=== PATIENT | female | born 2000 | race Caucasian/White ===

== ENCOUNTER 2018-05-01 19:29 | Emergency (ER) | payer BC ==
--- OUTSIDE RECORDS SUMMARY | 2018-05-01 19:58 | XMS REPORT | Continuity of Care Document ---
:1998 External Reference #:[id number] Author Name ANA Shaffer Address [address] [place] [address] Care Team Providers Name Role Phone Danii Briceño M.D. Primary Care Physician Unavailable Payers Date Identification Numbers Payment Provider Subscriber Effective: 2012 Policy Number: [id number] [place] Melania Reardon PayID: [id number] [address] [address] [place] [address] Advance Directives Description No Information Available Problems Date Description Provider Status Onset: 05/27/2015 Toxic effect of venom of hornets, JOSEPH Walker Active accidental (unintentional), subsequent encounter Onset: 05/27/2015 Body mass index (BMI) pediatric, 5th RIO Walker Active percentile to less than 85th percentile for age Family History Date Family Member(s) Observation Comments General Thyroid Disease Father Thyroid Disease Social History Type Date Description Comments Sex Unknown Lives With Parents Home Environment 20+Year Old Home, 2 Years In Current Home Home Environment Does not use air concrete pourer Home Environment Has a window air conditioner Home Environment Cotton Comforter Home Environment Mattress is not encased in an allergy proof case Home Environment Regular Mattress Home Environment Pillows are not encased in an allergy proof case Home Environment Pillows are polyester Home Environment Uses a dehumidifier Home Environment The basement is damp and dehumidifier used Home Environment There are no draperies in the home Home Environment The home is not selvin Home Environment The floors are carpeted Home Environment The floors are tile Home Environment The floors are wood Home Environment Uses forced air heating Home Environment [place] Home Environment Water Source: [facility] Smoke-Free Home is smoke-free Smoke-Free Work is smoke-free Pets 2 cats Pets 1 dog 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 ETOH Use Denies alcohol use Tobacco Use Start: Unknown Patient has never smoked Recreational Drug Use Denies Drug Use Allergies, Adverse Reactions, Alerts Date Description Reaction Status Severity Comments 03/20/2013 Bee Stings Active Medications Medication Date Status Form Strength Qnty SIG Indications Ordering Provider Epipen 2-Ion Active Solution 0.3mg/0.3M 1units use as Veronica 012 Auto-Injec gauri Cates for a [employer]NAGER [employer] severe allergic reaction Multi-Vitamin Active Chewtabs 1mg Zarzecki, /Fluoride 000 Maulik Williamson Medications Administered in Office Medication Date Status Form Strength Qnty SIG Indications Ordering Provider Injection 04/18/19 Administered Injection Allergy 19 Injection Injection 03/21/19 Administered Injection Allergy 19 Injection Injection 02/21/19 Administered Injection Allergy 19 Injection Injection 01/23/20 Administered Injection Allergy 18 Injection Injection 12/26/19 Administered Injection Allergy 18 Injection Injection 11/28/19 Administered Injection Allergy 18 Injection Injection 10/17/19 Administered Injection Allergy 18 Injection Injection 09/21/19 Administered Injection Allergy 18 Injection Injection 08/24/19 Administered Injection Allergy 18 Injection Injection 07/27/19 Administered Injection Allergy 18 Injection Injection 06/29/19 Administered Injection Allergy 18 Injection Injection 06/01/19 Administered Injection Allergy 18 Injection Injection 05/04/19 Administered Injection Allergy 18 Injection Injection 03/08/19 Administered Injection Allergy 18 Injection Injection 02/01/20 Administered Injection Allergy 17 Injection Injection 12/19/19 Administered Injection Allergy 17 Injection Injection 12/05/19 Administered Injection Allergy 17 Injection Injection 11/21/19 Administered Injection Allergy 17 Injection Injection 11/14/19 Administered Injection Allergy 17 Injection Injection 10/04/19 Administered Injection Allergy 17 Injection Injection 09/15/19 Administered Injection Allergy 17 Injection Injection 08/25/19 Administered Injection Allergy 17 Injection Injection 06/21/19 Administered Injection Rupali Avalos M.D. Injection 06/21/19 Administered Injection Allergy 17 Injection Injection 05/10/19 Administered Injection Allergy 17 Injection Injection 03/16/19 Administered Injection Allergy 17 Injection Injection 02/17/20 Administered Injection Allergy 16 Injection Injection 01/20/20 Administered Injection Allergy 16 Injection Injection 12/21/19 Administered Injection Allergy 16 Injection Injection 12/09/19 Administered Injection Allergy 16 Injection Injection 10/12/19 Administered Injection Allergy 16 Injection Injection 09/14/19 Administered Injection Allergy 16 Injection Injection 08/17/19 Administered Injection Allergy 16 Injection Injection 07/22/19 Administered Injection Allergy 16 Injection Injection 06/29/19 Administered Injection Allergy 16 Injection Injection 05/27/19 Administered Injection Allergy 16 Injection Injection 04/29/19 Administered Injection Allergy 16 Injection Injection 04/01/19 Administered Injection Allergy 16 Injection Injection 03/02/19 Administered Injection Allergy 16 Injection Injection 02/03/20 Administered Injection Allergy 15 Injection Injection 01/06/20 Administered Injection Allergy 15 Injection Injection 12/09/19 Administered Injection Allergy 15 Injection Injection 11/11/19 Administered Injection Allergy 15 Injection Injection 10/28/19 Administered Injection Allergy 15 Injection Injection 10/16/19 Administered Injection Allergy 15 Injection Injection 10/06/19 Administered Injection Allergy 15 Injection Injection 09/18/19 Administered Injection Allergy 15 Injection Injection 09/09/19 Administered Injection Allergy 15 Injection Injection 08/12/19 Administered Injection Allergy 15 Injection Injection 07/08/19 Administered Injection Allergy 15 Injection Injection 06/10/19 Administered Injection Allergy 15 Injection Injection 05/22/19 Administered Injection Allergy 15 Injection Injection 04/29/19 Administered Injection Allergy 15 Injection Injection 04/02/19 Administered Injection Allergy 15 Injection Injection 03/03/19 Administered Injection Allergy 15 Injection Injection 02/04/20 Administered Injection Allergy 14 Injection Injection 01/09/20 Administered Injection Allergy 14 Injection Injection 12/10/19 Administered Injection Costa 14 Marilu, M.D. Injection 12/10/19 Administered Injection Allergy 14 Injection Injection 11/12/19 Administered Injection Costa 14 Marilu, M.D. Injection 11/12/19 Administered Injection Allergy 14 Injection Injection 10/15/19 Administered Injection Costa 14 Marilu, M.D. Injection 10/15/19 Administered Injection Allergy 14 Injection Injection 09/10/19 Administered Injection Costa 14 Marilu, M.D. Injection 09/10/19 Administered Injection Allergy 14 Injection Injection 08/13/19 Administered Injection Allergy 14 Injection Injection 07/16/19 Administered Injection Costa 14 Maulik Michel Injection 07/16/19 Administered Injection Allergy 14 Injection Injection 06/18/19 Administered Injection Costa 14 Maulik Michel Injection 06/18/19 Administered Injection Allergy 14 Injection Injection 05/21/19 Administered Injection Costa 14 Maulik Michel Injection 05/21/19 Administered Injection Allergy 14 Injection Injection 04/23/19 Administered Injection Allergy 14 Injection Injection 03/20/19 Administered Injection Costa 14 Maulik Michel Injection 03/20/19 Administered Injection Allergy 14 Injection Injection 02/19/20 Administered Injection Costa 13 Maulik Michel Injection 02/19/20 Administered Injection Allergy 13 Injection Injection 01/22/20 Administered Injection Costa 13 Maulik Michel Injection 01/22/20 Administered Injection Allergy 13 Injection Injection 12/18/19 Administered Injection Allergy 13 Injection Injection 11/22/19 Administered Injection Costa 13 Maulik Michel Injection 11/22/19 Administered Injection Allergy 13 Injection Injection 10/23/19 Administered Injection Costa 13 Maulik Michel Injection 10/23/19 Administered Injection Allergy 13 Injection Injection 09/18/19 Administered Injection Costa 13 Maulik Michel Injection 09/18/19 Administered Injection Allergy 13 Injection Injection 08/16/19 Administered Injection Costa 13 Maulik Michel Injection 08/16/19 Administered Injection Allergy 13 Injection Injection 07/19/19 Administered Injection Costa 13 Maulik Michel Injection 07/19/19 Administered Injection Allergy 13 Injection Injection 06/28/19 Administered Injection Costa 13 Maulik Michel Injection 06/28/19 Administered Injection Allergy 13 Injection Injection 06/14/19 Administered Injection Costa 13 Maulik Michel Injection 06/14/19 Administered Injection Allergy 13 Injection Injection 06/05/19 Administered Injection Costa 13 Maulik Michel Injection 06/05/19 Administered Injection Allergy 13 Injection Injection 05/29/19 Administered Injection Costa 13 Maulik Michel Injection 05/29/19 Administered Injection Allergy 13 Injection Injection 05/17/19 Administered Injection Allergy 13 Injection Injection 05/10/19 Administered Injection Costa 13 Maulik Michel Injection 05/10/19 Administered Injection Allergy 13 Injection Injection 04/26/19 Administered Injection Costa 13 Maulik Michel Injection 04/18/19 Administered Injection Costa 13 Maulik Michel Injection 04/09/19 Administered Injection Costa 13 Maulik Michel Injection 04/02/19 Administered Injection Costa 13 Maulik Michel Injection 03/21/19 Administered Injection Costa 13 Maulik Michel Injection 03/12/19 Administered Injection Costa 13 Maulik Michel Injection 03/05/19 Administered Injection Costa 13 Maulik Michel Injection 02/26/19 Administered Injection Costa 13 Maulik Michel Injection 02/15/20 Administered Injection Costa 12 Maulik Michel Injection 02/08/20 Administered Injection Costa 12 Maulik Michel Injection 02/01/20 Administered Injection Costa 12 Maulik Michel Injection 01/25/20 Administered Injection Costa 12 Maulik Michel Injection 01/18/20 Administered Injection Costa 12 Maulik Michel Injection 01/09/20 Administered Injection Costa 12 Maulik Michel Injection 01/04/20 Administered Injection Costa 12 Maulik Michel Injection 12/28/19 Administered Injection Costa 12 Maulik Michel Injection 12/21/19 Administered Injection Costa 12 Maulik Michel Immunizations CPT Code Status Date Vaccine Lot # [id number] Given 12/19/2014 Influenza Vaccine Vital Signs Date Vital Result Comment 04/30/2018 9:45am Height 63 inches 5'3" Weight 125.00 lb Weight 56.700 kg Respiratory Rate 18 /min Heart Rate 100 /min O2 % BldC Oximetry 97 % BP Systolic 98 mmHg BP Diastolic 59 mmHg BMI (Body Mass Index) 22.1 kg/m2 12/04/2016 4:38pm Height 63 inches 5'3" Weight 123.00 lb Weight 55.793 kg Respiratory Rate 20 /min Heart Rate 77 /min O2 % BldC Oximetry 98 % BP Systolic 119 mmHg BP Diastolic 71 mmHg BMI (Body Mass Index) 21.8 kg/m2 Body Mass Index Percentile 54 % Height Percentile 31 % Weight Percentile 45th 05/27/2015 3:02pm Height 63 inches 5'3" Weight 114.00 lb Weight 51.710 kg Respiratory Rate 18 /min Heart Rate 87 /min O2 % BldC Oximetry 98 % BP Systolic 90 mmHg BP Diastolic 53 mmHg BMI (Body Mass Index) 20.2 kg/m2 Body Mass Index Percentile 40 % Height Percentile 33 % Weight Percentile 33rd 05/21/2014 3:10pm Height 63 inches 5'3" Weight 110.00 lb Weight 49.896 kg Respiratory Rate 18 /min Heart Rate 72 /min O2 % BldC Oximetry 98 % BP Systolic 90 mmHg BP Diastolic 60 mmHg BMI (Body Mass Index) 19.5 kg/m2 Body Mass Index Percentile 37 % Height Percentile 35 % Weight Percentile 31st 03/20/2013 2:54pm Height 63 inches 5'3" Weight 102.00 lb Weight 46.267 kg Respiratory Rate 18 /min Heart Rate 95 /min O2 % BldC Oximetry 99 % BMI (Body Mass Index) 18.1 kg/m2 Body Mass Index Percentile 24 % Height Percentile 39 % Weight Percentile 25th Results Description No Information Available Procedures Date Code Description Status 04/18/2018 19798 Injection Completed 03/21/2018 21227 Injection Completed 02/21/2018 28225 Injection Completed 01/22/2018 77088 Extract Stings-One Completed 01/22/2018 20061 Injection Completed 12/25/2017 36455 Injection Completed 11/27/2017 64209 Injection Completed 10/16/2017 80561 Injection Completed 09/20/2017 93837 Injection Completed 08/23/2017 32944 Injection Completed 07/26/2017 93608 Injection Completed 06/28/2017 19049 Injection Completed 05/31/2017 91175 Injection Completed 05/03/2017 98908 Injection Completed 03/08/2017 96511 Extract Stings-One Completed 03/08/2017 26789 Injection Completed 01/31/2017 97621 Injection Completed 12/18/2016 15990 Injection Completed 12/04/2016 54365 Injection Completed 11/20/2016 08959 Injection Completed 11/13/2016 55674 Injection Completed 10/03/2016 80440 Injection Completed 09/14/2016 24989 Injection Completed 08/24/2016 97649 Injection Completed 06/20/2016 10818 Injection Completed 06/20/2016 73627 Injection Completed 05/09/2016 73590 Extract Stings-One Completed 05/09/2016 66135 Injection Completed 03/16/2016 43891 Injection Completed 02/17/2016 24898 Injection Completed 01/20/2016 13718 Injection Completed 12/21/2015 82275 Injection Completed 12/09/2015 13688 Injection Completed 10/12/2015 43529 Injection Completed 09/14/2015 28551 Injection Completed 08/17/2015 28458 Injection Completed 07/22/2015 48859 Injection Completed 06/29/2015 74473 Extract Stings-One Completed 06/29/2015 19771 Injection Completed 05/27/2015 80861 Injection Completed 04/29/2015 78188 Injection Completed 04/01/2015 55948 Injection Completed 03/02/2015 02950 Injection Completed 02/02/2015 85382 Injection Completed 01/05/2015 00807 Injection Completed 12/08/2014 25407 Injection Completed 11/10/2014 51206 Injection Completed 10/27/2014 29359 Injection Completed 10/15/2014 64746 Injection Completed 10/05/2014 57765 Injection Completed 09/17/2014 50585 Injection Completed 09/08/2014 43730 Injection Completed 08/11/2014 92057 Extract Stings-One Completed 08/11/2014 18893 Injection Completed 07/07/2014 29441 Injection Completed 06/09/2014 43708 Injection Completed 05/21/2014 50184 Injection Completed 04/28/2014 26650 Injection Completed 04/02/2014 36824 Injection Completed 03/03/2014 06851 Injection Completed 02/03/2014 70714 Injection Completed 01/08/2014 63775 Injection Completed 12/09/2013 85244 Injection Completed 12/09/2013 52207 Injection Completed 11/11/2013 12049 Injection Completed 11/11/2013 50045 Injection Completed 11/11/2013 98742 Extract Stings-One Completed 10/14/2013 73175 Injection Completed 10/14/2013 47504 Injection Completed 09/09/2013 92029 Injection Completed 09/09/2013 73664 Injection Completed 08/12/2013 37512 Injection Completed 07/15/2013 26938 Injection Completed 07/15/2013 54433 Injection Completed 06/17/2013 01618 Injection Completed 06/17/2013 79627 Injection Completed 05/20/2013 41433 Injection Completed 05/20/2013 50523 Injection Completed 04/22/2013 96012 Injection Completed 03/20/2013 44080 Injection Completed 03/20/2013 60332 Injection Completed 02/18/2013 23275 Injection Completed 02/18/2013 99349 Injection Completed 01/21/2013 66938 Extract Stings-One Completed 01/21/2013 09613 Injection Completed 01/21/2013 41054 Injection Completed 12/17/2012 50839 Injection Completed 11/21/2012 37850 Injection Completed 11/21/2012 42388 Injection Completed 10/22/2012 39703 Injection Completed 10/22/2012 10332 Injection Completed 09/17/2012 79242 Injection Completed 09/17/2012 31363 Injection Completed 08/15/2012 15831 Injection Completed 08/15/2012 67972 Injection Completed 07/18/2012 53193 Injection Completed 07/18/2012 87042 Injection Completed 06/27/2012 04020 Injection Completed 06/27/2012 44978 Injection Completed 06/13/2012 30989 Injection Completed 06/13/2012 43658 Injection Completed 06/04/2012 96468 Injection Completed 06/04/2012 78082 Injection Completed 05/28/2012 28843 Extract Stings-One Completed 05/28/2012 04594 Injection Completed 05/28/2012 92640 Injection Completed 05/16/2012 23235 Injection Completed 05/09/2012 60891 Injection Completed 05/09/2012 99614 Injection Completed 04/25/2012 53507 Injection Completed 04/18/2012 32081 Injection Completed 04/09/2012 84060 Injection Completed 04/02/2012 32924 Injection Completed 03/21/2012 06837 Injection Completed 03/12/2012 51279 Injection Completed 03/05/2012 23263 Injection Completed 02/27/2012 98490 Extract Stings-One Completed 02/27/2012 33901 Injection Completed 02/15/2012 00697 Injection Completed 02/08/2012 17421 Injection Completed 02/01/2012 35747 Injection Completed 01/25/2012 33939 Injection Completed 01/18/2012 86189 Injection Completed 01/09/2012 48720 Injection Completed 01/04/2012 79535 Injection Completed 12/28/2011 97986 Injection Completed 12/21/2011 42179 Injection Completed 12/14/2011 66235 Extract Stings-One Completed 12/14/2011 26356 Skin Tests Id Completed Encounters Type Date Location Provider Dx Diagnosis Office Visit 04/30/2018 [facility] Veronica Benson, T63.451D Toxic effect of 9:40a [employer]NAGER [employer] venom of hornets, accidental, subs Office Visit 12/04/2016 [place] Veronica Benson, Z23 Encounter for 4:40p [employer] immunization T63.451D Toxic effect of venom of hornets, accidental, subs T63.441D Toxic effect of venom of bees, accidental, subs Office Visit 05/27/2015 3:00p [place] [facility] Sara T63.451D Toxic effect of Ranjit, [employer]NAGER [employer] venom of hornets, accidental, subs Z68.52 BMI pediatric, 5th percentile to less than 85% for age Office Visit 05/21/2014 3:00p [place] [facility] Manisha 989.5 Toxic Effect Of Sarah, PH.D, Venom RPA-C Office Visit 03/20/2013 3:00p [place] [facility] Judi Gamboa, 477.0 Rhinitis [employer] Allergic Due To Pollen 477.8 Rhinitis Allergic Due To Other Allergen 995.3 Allergy Unspec Office Visit 10/12/2011 4:20p [place] [facility] Rosette Yoo 989.5 Toxic Effect Of M.D. Venom 477.0 Rhinitis Allergic Due To Pollen 477.8 Rhinitis Allergic Due To Other Allergen Office Visit 09/22/2010 11:40a [place] [facility] Costa Michel 989.5 Toxic Effect M.D. Of Venom 477.0 Rhinitis Allergic Due To Pollen 477.8 Rhinitis Allergic Due To Other Allergen Office Visit 08/10/2005 9:15a [place] [facility] Moises Batista 989.5 Toxic Effect Of Maulik Arzate Venom Office Visit 09/30/2002 1:15p [place] [facility] Moises Batista 477.0 Rhinitis Maulik Arzate Allergic Due To Pollen 477.8 Rhinitis Allergic Due To Other Allergen 989.5 Toxic Effect Of Venom Plan of Treatment 04/30/2018 - Veronica Benson, MANAGER [employer]-CT63.451D Toxic effect of venom of hornets, accidental (unintentional)Follow up:1 yearRecommendations:Continue all medications as prescribed.Refrain from wearing perfumes/scented colognes while visitingour office. Continue with the bee immunotherapy to bees as tolerated. Epipen refilled.
[2018-05-01 20:07] VITALS: BP 118/69
--- NOTE | 2018-05-01 20:28 | UC ---
Throat Pain/Nasal Ahmet HPI - HPI Summary HPI Summary: Patient has had cold symptoms for approximately 2 weeks. She states the past couple of days she has had bilateral sinus pressure as well as a nonproductive cough. Denies any history of asthma, she is a nonsmoker. - History of Current Complaint Chief Complaint: UCRespiratory Stated Complaint: COUGH,SINUSES,RUNNY NOSE Time Seen by Provider: 05/01/18 20:06 Hx Obtained From: Patient Hx Last Menstrual Period: 04/25/18 ?: No Onset/Duration: Gradual Onset Severity: Mild Pain Intensity: 0 Cough: Nonproductive Associated Signs & Symptoms: Positive: Sinus Discomfort, Other - -colored nasal coryza - Epiglottits Risk Factors Epiglottis Risk Factors: Negative - Allergies/Home Medications Allergies/Adverse Reactions: Allergies Allergy/AdvReac Type Severity Reaction Status Date / Time No Known Allergies Allergy Verified 05/01/18 20:06 Home Medications: Home Medications Norethindrone-Ethinyl Estrad [Alyacen 1-35-28 Tablet] 1 each PO DAILY 05/01/18 [ History Confirmed 05/01/18] PMH/Surg Hx/FS Hx/Imm Hx Previously Healthy: Yes - Surgical History Surgical History: None - Social History Occupation: Student Lives: Dormitory/Roommates Alcohol Use: Occasionally Substance Use Type: None Smoking Status (MU): Never Smoked Tobacco Review of Systems All Other Systems Reviewed And Are Negative: Yes Constitutional: Positive: Negative Skin: Positive: Negative Eyes: Positive: Negative ENT: Positive: Nasal Discharge, Sinus Congestion, Sinus Pain/Tenderness - Allergies coryza Respiratory: Positive: Cough Cardiovascular: Positive: Negative - Nonproductive cough Gastrointestinal: Positive: Negative Genitourinary: Positive: Negative Motor: Positive: Negative Neurovascular: Positive: Negative Musculoskeletal: Positive: Negative Neurological: Positive: Negative Psychological: Positive: Negative Is Patient Immunocompromised?: No Physical Exam Triage Information Reviewed: Yes Appearance: Well-Appearing, No Pain Distress, Well-Nourished Vital Signs: Initial Vital Signs Temp 98.3 F 05/01/18 20:03 Pulse 103 05/01/18 20:03 Resp 16 05/01/18 20:03 BP 118/69 05/01/18 20:03 Pulse Ox 99 05/01/18 20:03 Vital Signs Reviewed: Yes Eye Exam: Normal ENT: Positive: Pharynx normal, Nasal congestion, Nasal drainage - Yellow postnasal drainage, Sinus tenderness - Tenderness over the maxillary sinuses bilaterally, yellow nasal coryza, Uvula midline Neck exam: Normal Respiratory Exam: Normal Cardiovascular Exam: Normal Abdominal Exam: Normal Bowel Sounds: Positive: Present Musculoskeletal Exam: Normal Neurological Exam: Normal Psychological Exam: Normal Skin Exam: Normal Throat Pain/Nasal Course/Dx - Course Course Of Treatment: Patient has been comfortable here. [place] in 3 days. - Differential Dx/Diagnosis Differential Diagnosis/HQI/PQRI: Sinusitis Provider Diagnosis: Sinusitis Discharge - Sign-Out/Discharge Documenting (check all that apply): Patient Departure All imaging exams completed and their final reports reviewed: No Studies - Discharge Plan Condition: Good Disposition: HOME Prescriptions: Amoxicillin PO (*) [Amoxicillin 875 MG (*)] 875 mg PO BID 10 Days #20 tab Patient Education Materials: Sinusitis (ED) Referrals: Danii Briceño MD [Primary Care Provider] - Additional Instructions: Increase fluids. Take the antibiotic for the full 10 days. Definite follow up with your primary care provider if no improvement in 3 or 4 days. - Billing Disposition and Condition Condition: GOOD Disposition: Home
== END 2018-05-01 20:28 | disposition home or self-care (01) ==
LOC: UCCORT 19:29
DX: J32.9 Chronic sinusitis, unspecified (principal)
CPT/HCPCS: 99202; G0463

== ENCOUNTER 2018-07-14 12:34 | Emergency (ER) | payer BC ==
[2018-07-14 12:50] VITALS: BP 116/65
--- NOTE | 2018-07-14 13:08 | UC ---
Respiratory Complaint HPI - HPI Summary HPI Summary: Productive cough w/ green mucus and congestion x2-3 weeks. Fever/chills on/off. Taking robitussin and nyquil prn. Works in childcare. [ End ] - History of Current Complaint Chief Complaint: UCRespiratory Stated Complaint: CHEST CONGESTION Time Seen by Provider: 07/14/18 12:54 Hx Obtained From: Patient Hx Last Menstrual Period: 06/24/18 Onset/Duration: Sudden Onset, Lasting Weeks Timing: Constant Severity Initially: Mild Severity Currently: Moderate Pain Intensity: 0 Character: Cough: Productive Aggravating Factors: Deep Breaths Alleviating Factors: Nothing Associated Signs And Symptoms: Positive: Fever, Chills, URI, Nasal Congestion, Sinus Discomfort - Allergies/Home Medications Allergies/Adverse Reactions: Allergies Allergy/AdvReac Type Severity Reaction Status Date / Time No Known Allergies Allergy Verified 07/14/18 12:45 PMH/Surg Hx/FS Hx/Imm Hx Previously Healthy: Yes - Surgical History Surgical History: None - Family History Known Family History: Positive: Hypertension - Social History Alcohol Use: Occasionally Substance Use Type: None Smoking Status (MU): Never Smoked Tobacco Review of Systems All Other Systems Reviewed And Are Negative: Yes Constitutional: Positive: Fever, Chills, Fatigue ENT: Positive: Sore Throat, Ear Ache, Nasal Discharge, Sinus Congestion Respiratory: Positive: Cough Neurological: Positive: Headache Is Patient Immunocompromised?: No Physical Exam Triage Information Reviewed: Yes Appearance: Well-Nourished, Ill-Appearing, Pain Distress Vital Signs: Initial Vital Signs Temp 97.5 F 07/14/18 12:46 Pulse 83 07/14/18 12:46 Resp 16 07/14/18 12:46 BP 116/65 07/14/18 12:46 Pulse Ox 100 07/14/18 12:46 Vital Signs Reviewed: Yes Eye Exam: Normal ENT: Positive: Pharyngeal erythema, TM bulging, TM red, Tonsillar swelling, Dental tenderness, Sinus tenderness Dental Exam: Normal Neck exam: Normal Respiratory Exam: Normal Respiratory: Positive: Chest non-tender, Lungs clear, Normal breath sounds Cardiovascular Exam: Normal Cardiovascular: Positive: RRR, No Murmur, Pulses Normal Abdominal Exam: Normal Bowel Sounds: Positive: Present Musculoskeletal Exam: Normal Neurological Exam: Normal Psychological Exam: Normal Skin Exam: Normal Respiratory Course/Dx - Course Course Of Treatment: hx obtained, exam performed, meds reviewed, treaed for sinusitis - Differential Dx/Diagnosis Differential Diagnosis/HQI/PQRI: Asthma, Bronchitis, Influenza, Laryngitis, Sinusitis Provider Diagnosis: Sinusitis Discharge - Sign-Out/Discharge Documenting (check all that apply): Patient Departure All imaging exams completed and their final reports reviewed: No Studies - Discharge Plan Condition: Stable Disposition: HOME Prescriptions: Amoxicillin PO (*) [Amoxicillin 875 MG (*)] 875 mg PO BID #20 tab Patient Education Materials: Sinusitis (ED) Referrals: Danii Briceño MD [Primary Care Provider] - Additional Instructions: 1. take the medication as prescribed. 2. Increase fluid intake and get rest 3. take a daily dose of zrtec or flonase for the next few weeks - Billing Disposition and Condition Condition: STABLE Disposition: Home - Attestation Statements Provider Attestation: Per institutional requirements, I have reviewed the chart, however, I was not consulted specifically or made aware of this patient by the midlevel provider. I did not personally evaluate, interact with , or disposition this patient.
== END 2018-07-14 13:17 | disposition home or self-care (01) ==
LOC: UCCORT 12:34
DX: J32.9 Chronic sinusitis, unspecified (principal)
CPT/HCPCS: 99212; G0463

== ENCOUNTER 2018-11-12 19:00 | Emergency (ER) | payer BC ==
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
[2018-11-12 20:25] VITALS: BP 119/71
--- NOTE | 2018-11-12 21:00 | UC ---
Eye Complaint HPI - HPI Summary HPI Summary: 18-year-old female who developed right eye redness and yellowish drainage today. 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 She's also had an upper respiratory illness last week and the stomach bug last week. - History of Current Complaint Chief Complaint: UCEye Stated Complaint: RIGHT EYE COMPLAINT Time Seen by Provider: 11/12/18 21:00 Hx Obtained From: Patient Hx Last Menstrual Period: 11/05/18 ?: No Onset/Duration: Gradual Onset Timing: Constant Severity Initially: Mild Severity Currently: Mild Pain Intensity: 2 Location of Injury: Other - No injury Aggravating Factor(s): Contact Lens Alleviating Factor(s): Nothing Associated Signs And Symptoms: Positive: Drainage (Purulent) - Allergies/Home Medications Allergies/Adverse Reactions: Allergies Allergy/AdvReac Type Severity Reaction Status Date / Time No Known Allergies Allergy Verified 11/12/18 20:21 PMH/Surg Hx/FS Hx/Imm Hx Previously Healthy: Yes - Surgical History Surgical History: None - Family History Known Family History: Positive: Hypertension - Social History Occupation: Employed Full-time Alcohol Use: Occasionally Substance Use Type: None Smoking Status (MU): Never Smoked Tobacco Review of Systems All Other Systems Reviewed And Are Negative: Yes Eyes: Positive: Drainage, Eye Redness - Right eye redness and yellow drainage. ENT: Positive: Nasal Discharge - Patient has had cold symptoms late last week. Gastrointestinal: Positive: Vomiting - She had the stomach bug last week but that has resolved. Is Patient Immunocompromised?: No Physical Exam Triage Information Reviewed: Yes Appearance: Well-Appearing, No Pain Distress, Well-Nourished Vital Signs: Initial Vital Signs Temp 98 F 11/12/18 20:21 Pulse 87 11/12/18 20:21 Resp 16 11/12/18 20:21 BP 119/71 11/12/18 20:21 Pulse Ox 99 11/12/18 20:21 Vital Signs Reviewed: Yes Eyes: Positive: Conjunctiva Inflamed, Discharge - Yellow purulent drainage, PERRLA, EOMI. ENT: Positive: Hearing grossly normal, Pharynx normal, TMs normal, Uvula midline Neck: Positive: Supple, Nontender, No Lymphadenopathy Respiratory: Positive: Lungs clear, Normal breath sounds, No respiratory distress, No accessory muscle use Cardiovascular: Positive: RRR, No Murmur, Pulses Normal, Brisk Capillary Refill Eye Complaint Course/Dx - Course Course Of Treatment: Patient has been comfortable here. I'm going to treat her with tobramycin for a right conjunctivitis. She is to follow-up with an manager employee relations if any worsening symptoms or no improvement in 2 or 3 days. - Differential Dx/Diagnosis Provider Diagnosis: Right conjunctivitis Discharge ED - Sign-Out/Discharge Documenting (check all that apply): Patient Departure All imaging exams completed and their final reports reviewed: No Studies - Discharge Plan Condition: Good Disposition: HOME Prescriptions: Tobramycin 0.3% OPHTH.DARA* 1 drop RIGHT EYE Q4H 7 Days #1 btl Patient Education Materials: Conjunctivitis (ED) Forms: *Work Release Referrals: Danii Briceño MD [Primary Care Provider] - Additional Instructions: Good handwashing, no contact lenses until the prescription is complete in one week. Follow-up with an manager employee relations if you have no improvement in 2 days. - Billing Disposition and Condition Condition: GOOD Disposition: Home
== END 2018-11-12 21:11 | disposition home or self-care (01) ==
LOC: UCCORT 19:00
DX: H10.31 Unspecified acute conjunctivitis, right eye (principal)
CPT/HCPCS: 99212; G0463

== ENCOUNTER 2018-12-09 17:51 | Emergency (ER) | payer BC ==
[2018-12-09 18:12] VITALS: BP 105/80
--- NOTE | 2018-12-09 20:20 | UC ---
Throat Pain/Nasal Ahmet HPI - HPI Summary HPI Summary: 18-year-old female comes in with a chief complaint of upper respiratory tract infection symptoms for 3-4 weeks. She's got green rhinorrhea sinus pressure. She just just developed right thigh discharge and irritation. Is of a cough or chest congestion postnasal drip. No wheezing no history of asthma. - History of Current Complaint Chief Complaint: UCGeneralIllness Stated Complaint: RT EYE COMPLAINT,COUGH,CONGESTION Time Seen by Provider: 12/09/18 20:00 Hx Last Menstrual Period: 12/03/18 Pain Intensity: 6 - Allergies/Home Medications Allergies/Adverse Reactions: Allergies Allergy/AdvReac Type Severity Reaction Status Date / Time No Known Allergies Allergy Verified 11/12/18 20:21 Home Medications: Home Medications Guaifen/Dextromethorphan/PE [Robitussin Cough-Cold Cf Liq] 10 ml PO ONCE [History Confirmed 12/09/18] Ibuprofen TAB* [Advil TAB*] 1 tab PO ONCE 12/09/18 [History Confirmed 12/09/18] PMH/Surg Hx/FS Hx/Imm Hx Previously Healthy: Yes - Surgical History Surgical History: None - Family History Known Family History: Positive: Hypertension - Social History Alcohol Use: Occasionally Substance Use Type: None Smoking Status (MU): Never Smoked Tobacco Review of Systems All Other Systems Reviewed And Are Negative: Yes Constitutional: Positive: Negative Skin: Positive: Negative Eyes: Positive: Drainage, Eye Redness ENT: Positive: Sore Throat, Nasal Discharge, Sinus Congestion, Sinus Pain/ Tenderness Respiratory: Positive: Cough Cardiovascular: Positive: Negative Gastrointestinal: Positive: Negative Motor: Positive: Negative Neurovascular: Positive: Negative Musculoskeletal: Positive: Negative Neurological: Positive: Negative Psychological: Positive: Negative Is Patient Immunocompromised?: No Physical Exam Triage Information Reviewed: Yes Appearance: No Pain Distress, Well-Nourished, Ill-Appearing - MILD Vital Signs: Initial Vital Signs Temp 98.6 F 12/09/18 18:08 Pulse 86 12/09/18 18:08 Resp 18 12/09/18 18:08 BP 105/80 12/09/18 18:08 Pulse Ox 100 12/09/18 18:08 Vital Signs Reviewed: Yes Eye Exam: Normal Eyes: Positive: Conjunctiva Inflamed - RT, Discharge - RT ENT: Positive: Pharyngeal erythema, Nasal congestion, Nasal drainage, TMs normal Neck: Positive: Supple Respiratory: Positive: Lungs clear, Normal breath sounds, No respiratory distress Cardiovascular: Positive: RRR Musculoskeletal: Positive: Strength Intact, ROM Intact Neurological: Positive: Alert, Muscle Tone Normal Psychological: Positive: Age Appropriate Behavior Skin Exam: Normal Throat Pain/Nasal Course/Dx - Differential Dx/Diagnosis Provider Diagnosis: Sinusitis, Conjunctivitis Discharge ED - Sign-Out/Discharge Documenting (check all that apply): Patient Departure All imaging exams completed and their final reports reviewed: No Studies - Discharge Plan Condition: Stable Disposition: HOME Prescriptions: Amoxicillin PO (*) [Amoxicillin 875 MG (*)] 875 mg PO BID #20 tab Fluticasone NASAL SPRAY 50MCG* [Flonase NASAL SPRAY 50MCG*] 2 spray BOTH NARES DAILY #1 btl Tobramycin 0.3% OPHTH.DARA* 1 drop RIGHT EYE Q4H #1 btl Patient Education Materials: Sinusitis (ED), Conjunctivitis (ED) Forms: *Work Release Referrals: Danii Briceño MD [Primary Care Provider] - Additional Instructions: FOLLOW UP WITH YOUR DOCTOR IF NOT COMPLETELY IMPROVED. GET REEVALUATED SOONER IF NOT IMPROVING OR YOUR CONDITION WORSENS OR ANY QUESTIONS OR CONCERNS. - Billing Disposition and Condition Condition: STABLE Disposition: Home
== END 2018-12-09 20:28 | disposition home or self-care (01) ==
LOC: UCCORT 17:51
DX: J32.9 Chronic sinusitis, unspecified (principal); H10.9 Unspecified conjunctivitis
CPT/HCPCS: 99212; G0463

== ENCOUNTER 2019-01-03 11:48 | Emergency (ER) | payer BC ==
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
[2019-01-03 13:37] VITALS: BP 108/58
[2019-01-03 14:01] LABS: Influenza A Molecular NEGATIVE (Negative); Influenza B Molecular NEGATIVE (Negative)
--- NOTE | 2019-01-03 14:07 | UC ---
Respiratory Complaint HPI - HPI Summary HPI Summary: 18 yo female ill x 4 day with f/c (tmax 101.6), myalgias/cough, mild runny nose and sore throat no n/v/d no cp or sob no UTI symptoms - History of Current Complaint Chief Complaint: UCGeneralIllness Stated Complaint: FEVER, COUGH, CONGESTION Time Seen by Provider: 01/03/19 13:51 Hx Obtained From: Patient Hx Last Menstrual Period: 12/31/18 Onset/Duration: Gradual Onset, Lasting Days Timing: Constant Severity Initially: Mild Severity Currently: Mild Pain Intensity: 0 Pain Scale Used: 0-10 Numeric Character: Cough: Nonproductive Aggravating Factors: Nothing Alleviating Factors: Nothing Associated Signs And Symptoms: Positive: Fever, Chills, Nasal Congestion - Allergies/Home Medications Allergies/Adverse Reactions: Allergies Allergy/AdvReac Type Severity Reaction Status Date / Time No Known Allergies Allergy Verified 01/03/19 13:37 PMH/Surg Hx/FS Hx/Imm Hx Previously Healthy: Yes - Surgical History Surgical History: None - Family History Known Family History: Positive: Hypertension, Non-Contributory - Social History Alcohol Use: Occasionally Substance Use Type: None Smoking Status (MU): Never Smoked Tobacco Review of Systems All Other Systems Reviewed And Are Negative: Yes Constitutional: Positive: Fever, Chills Skin: Positive: Negative Eyes: Positive: Negative ENT: Positive: Sore Throat, Nasal Discharge Respiratory: Positive: Cough Cardiovascular: Positive: Negative Gastrointestinal: Positive: Negative Genitourinary: Positive: Negative Motor: Positive: Negative Neurovascular: Positive: Negative Musculoskeletal: Positive: Negative Neurological: Positive: Negative Psychological: Positive: Negative Physical Exam Triage Information Reviewed: Yes Appearance: Well-Appearing, No Pain Distress, Well-Nourished Vital Signs: Initial Vital Signs Temp 98.1 F 01/03/19 13:30 Pulse 116 01/03/19 13:30 Resp 14 01/03/19 13:30 BP 108/58 01/03/19 13:30 Pulse Ox 100 01/03/19 13:30 Vital Signs Reviewed: Yes Eyes: Positive: Conjunctiva Clear ENT: Positive: Hearing grossly normal, Pharyngeal erythema, Nasal congestion, Uvula midline. Negative: Nasal drainage, Trismus, Muffled voice, Hoarse voice, Sinus tenderness Neck: Positive: Supple, Nontender, Enlarged Nodes @ - ant cerv Respiratory: Positive: Lungs clear, Normal breath sounds, No respiratory distress, No accessory muscle use Cardiovascular: Positive: RRR, No Murmur Musculoskeletal: Positive: ROM Intact, No Edema Neurological: Positive: Alert Psychological Exam: Normal Skin Exam: Normal Diagnostics - Laboratory Lab Results: strep (-) influenza (-) Respiratory Course/Dx - Differential Dx/Diagnosis Provider Diagnosis: Viral URI with cough Discharge ED - Sign-Out/Discharge Documenting (check all that apply): Patient Departure All imaging exams completed and their final reports reviewed: No Studies - Discharge Plan Condition: Stable Disposition: HOME Patient Education Materials: Upper Respiratory Infection (ED) Referrals: Danii Briceño MD [Primary Care Provider] - 3 Days (if not better) Additional Instructions: rest fluids tylenol or advil for fever recheck for new or worsening symptoms your strep and flu tests were negative - Billing Disposition and Condition Condition: STABLE Disposition: Home
== END 2019-01-03 14:31 | disposition home or self-care (01) ==
LOC: UCCORT 11:48
DX: J06.9 Acute upper respiratory infection, unspecified (principal); R05 Cough
CPT/HCPCS: 87651; 99211; G0463